=== PATIENT | female | born 1980 | race American Indian/Alaskan Native ===

== ENCOUNTER 2020-10-14 06:16 | Day surgery (SDC) | payer OTHER ==
[~2020-10-14 06:16] MED LIST: ACETAMINOPHEN 500 MG TAB PO SCH; MIDAZOLAM 2 MG/2 ML INJ IV NR
[2020-10-14] MEDS ORDERED: LACTATED RINGERS 1,000 ML ONE (06:48)
[2020-10-14] MEDS ORDERED: BACTERIOSTATIC SODIUM CHLORIDE 0.9% 30 ML VIAL INFILTRATI ONE (06:49)
[2020-10-14] MEDS ORDERED: ceFAZolin/STERILE WATER 2 GM/20 ML SYRINGE IV NR (07:00)
[2020-10-14] MEDS ORDERED: LIDOCAINE (1%) 10 MG/1 ML VIAL 20 ML MDV ONE (07:02)
[2020-10-14] MEDS ORDERED: BUPIVACAINE/PF (0.25%) 2.5 MG/ML 30 ML VIAL INFILTRATI ONE ×2 (07:02→08:13)
[2020-10-14] MEDS ORDERED: LACTATED RINGERS 1,000 ML IV SCH (07:15)
[2020-10-14] MEDS ORDERED: fentaNYL 100 MCG/2 ML INJ ONE (07:20)
[2020-10-14] MEDS ORDERED: propofoL 200 MG/20 ML VIAL IV ONE ×2 (07:20→08:05)
[2020-10-14] MEDS ORDERED: HYDROmorphone 1 MG/1 ML INJ IV PRN (07:25)
[2020-10-14] MEDS ORDERED: ONDANSETRON 4 MG/2 ML INJ IV PRN (07:25)
[2020-10-14] MEDS ORDERED: HYDROcodone/ACETAMINOPHEN 5-325 MG TAB PO PRN (07:25)
--- NOTE | 2020-10-14 07:25 | Anesthesia Consultation ---
Anesthesia Consult and Med Hx Date of service: 10/14/20 - Airway Anesthetic Teeth Evaluation: Good ROM Head & Neck: Adequate Mental/Hyoid Distance: Adequate Mallampati Class: Class III Intubation Access Assessment: Possibly Difficult - Pulmonary Exam CTA: Yes - Pre-Operative Health Status ASA Pre-Surgery Classification: ASA1 Proposed Anesthetic Plan: MAC - Pulmonary Hx Smoking: No Hx Respiratory Symptoms: No - Cardiovascular System Hx Hypertension: No - Central Nervous System CVA: No - Endocrine Hx Renal Disease: No Hx Liver Disease: No Hx Insulin Dependent Diabetes: No Hx Non-Insulin Dependent Diabetes: No Hx Thyroid Disease: No - Other Systems Hx Obesity: Yes (BMI 33) - Additional Comments Anesthesia Medical History Comments: No hx anesthetic complications.
--- NOTE | 2020-10-14 07:25 | Anesthesia Day of Surgery ---
Anesthesia Day of Surgery - Day of Surgery Patient Examined: Yes Patient H&P Reviewed: Yes Patient is NPO: Yes
[2020-10-14] MEDS ORDERED: ONDANSETRON 4 MG/2 ML INJ ONE (07:30)
[2020-10-14] MEDS ORDERED: GLYCOPYRROLATE 0.4 MG/2 ML INJ ONE (07:30)
[2020-10-14] MEDS ORDERED: LIDOCAINE MPF (2%) 20 MG/1 ML VIAL 5 ML ONE (07:30)
[2020-10-14] MEDS ORDERED: KETAMINE/STERILE WATER 50 MG/ML SYRINGE ONE (07:40)
[2020-10-14] MEDS ORDERED: SODIUM CHLORIDE 0.9% IRR 1,500 ML BOTTLE IR ONE (08:13)
[2020-10-14] MEDS ORDERED: LIDOCAINE (1%) 10 MG/1 ML VIAL 20 ML MDV INFILTRATI ONE (08:13)
--- NOTE | 2020-10-14 08:43 | Short Stay Summary ---
Short Stay Documentation Date of service: 10/14/20 - History Principal diagnosis: soft tissue mass right shoulder H&P: obtained from office - Allergies and Medications Current Medications: Allergies No Known Allergies Allergy (Verified 10/09/20 16:11) Home Medications Medication Instructions Recorded Confirmed Last Taken Type Multivit-Min/Iron/Folic Acid/K 1 each PO DAILY 10/09/20 10/14/20 10/13/20 History [Multi-Day Plus Minerals Tablet] Active Medications Acetaminophen (Acetaminophen 500 Mg Tab) 1,000 mg PO PREOP ALTAGARCIA Stop: 10/14/20 20:00 Last Admin: 10/14/20 06:55 Dose: 1,000 mg Documented by: Hydrocodone Bitart/Acetaminophen (Hydrocodone/Acetaminophen 5-325 Mg Tab) 2 each PO ONCE PRN PRN Reason: Pain, Moderate (4-6) Stop: 10/14/20 10:00 Cefazolin Sodium (Cefazolin/Sterile Water 2 Gm/20 Ml Syringe) 2 gm IV PREOP NR Stop: 10/14/20 20:00 Hydromorphone HCl (Hydromorphone 1 Mg/1 Ml Inj) 0.5 mg IV Q10MIN PRN PRN Reason: Pain , Severe (7-10) Stop: 10/14/20 20:00 Lactated Ringer's (Lactated Ringers) 1,000 mls @ 100 mls/hr IV DIRECT ALTAGRACIA Last Admin: 10/14/20 07:00 Dose: 100 mls/hr Documented by: Midazolam HCl (Midazolam 2 Mg/2 Ml Inj) 2 mg IV PREOP NR Stop: 10/14/20 20:00 Last Admin: 10/14/20 07:10 Dose: 2 mg Documented by: Ondansetron HCl (Ondansetron 4 Mg/2 Ml Inj) 4 mg IV ONCE PRN PRN Reason: Nausea And Vomiting Stop: 10/14/20 12:00 - Brief post op/procedure progress note Date of procedure: 10/14/20 Pre-op diagnosis: soft tissue mass right shoulder Post-op diagnosis: same Procedure: excision soft tissue mass right shoulder Anesthesia: MAC, local Findings: 7cm lobulated fatty mass consistent with lipoma Surgeon: CARINA CAICEDO Estimated blood loss: minimal Pathology: list (soft tissue mass right shoulder) Specimen disposition: to lab Condition: stable - Hospital course Hospital course: Pt observed in PACU and discharged to home in stable condition when criteria met - Disposition Condition at discharge: Good Disposition: DC-01 TO HOME OR SELFCARE Short Stay Discharge Plan Activity: other (avoid heavy lifting with right arm for next 2 weeks) Diet: regular Wound: other (May shower tomorrow. Keep the area of surgery out of direct water stream but ok if it gets wet. Pat dry. Remove outer dressing after 7 days. ) Follow up with: PRIMARY CARE, [Primary Care Provider] - 7 Days CARINA CAICEDO DO [Staff Physician] - 14 Days Prescriptions: HYDROcodone/APAP 5-325 [[place] 5/325] 1 each PO Q8H PRN #10 tablet PRN Reason: Pain , Severe (7-10)
[2020-10-14 09:40] VITALS: BP 115/71
--- NOTE | 2020-10-14 10:53 | Post Anesthesia Evaluation ---
- Post Anesthesia Evaluation Patient Participated: Yes Airway Patent: Yes Stable Respiratory Function: Yes Nausea/Vomiting: No Temp > 96.8F: Yes Pain Manageable: Yes Adequeate Hydration: Yes Anesthesia Complications: No
--- NOTE | 2020-10-16 11:21 | Operative Report ---
Operative Report Operative Report: Date of procedure: 10/14/20 Pre-op diagnosis: soft tissue mass right shoulder Post-op diagnosis: same Procedure: excision soft tissue mass right shoulder Anesthesia: MAC, local Findings: 7cm lobulated fatty mass consistent with lipoma Surgeon: CARINA CAICEDO Estimated blood loss: minimal Pathology: list (soft tissue mass right shoulder) Specimen disposition: to lab Condition: stable Hospital course: Pt observed in PACU and discharged to home in stable condition when criteria met HPI and Indication: Patient is a 40 yo F who presented to the office for a workup of a mass on the right posterior shoulder that had been growing in size and becoming more uncomfortable. It was recommended that the mass be excised. On exam, the mass was soft, mobile without skin changes. The patient was set up for an elective excision. After all risks were discussed and questions answered, consent was signed in the office. Procedure in detail: Patient was identified in the preoperative area, taken back to the operating room, placed on the operating room table in right lateral decubitus position with right side up. After anesthesia was induced, the right posterior shoulder was prepped and draped in usual sterile fashion and a timeout was performed. Local anesthetic was injected into the skin at the intended incision site. An incision was made in the skin over the mass using a 15 blade. Dissection was carried down through the skin using electrocautery. The mass was encountered and appeared fatty. Using a combination of blunt dissection with a hemostat and electrocautery, the mass was carefully dissected away from the surrounding tissue circumferentially. The mass was lobulated with multiple septations of the capsule. The mass in its entirety was excised and measured at 7cm. Gross appearance consistent with lipoma. This was then passed off the table as a specimen. The wound was then irrigated and hemostasis achieved with electrocautery. Once hemostasis was ensured, the deep dermal layer was closed using interrupted 3-0 Vicryl sutures. The skin was closed with 4-0 Monocryl subcuticular stitches and skin glue. After the skin wound was dry, a piece of gauze was placed over the incision and compression dressing applied using elastoplast tape. At the end of the case, all sponge, instrument, sharp counts were correct 2. The patient was awoken from anesthesia and taken to PACU in stable condition.
== END 2020-10-14 09:38 | disposition home or self-care (01) ==
LOC: OR 06:16
PROVIDERS: ATTEND Surgery
DX: D17.21 Benign lipomatous neoplasm of skin and subcutaneous tissue of right arm (principal); E66.9 Obesity, unspecified; Z68.33 Body mass index [BMI] 33.0-33.9, adult; Z79.899 Other long term (current) drug therapy; Z98.51 Tubal ligation status; Z98.890 Other specified postprocedural states
CPT/HCPCS: 24071; 81025; 88304; J0690; J2250; J2405; J2704; J3010; J3490; J7120; 88307